=== PATIENT | female | born 1960 | race Caucasian/White ===

== ENCOUNTER 2022-09-11 23:35 | Emergency (ER) | payer OTHER ==
[~2022-09-11] VITALS: Ht 170.2 cm; Wt 61.7 kg
[~2022-09-11 23:35] MED LIST: CLIN-141 PO
[2022-09-11 23:39] VITALS: BP 126/72; PULSE 82; RESP 18
== END 2022-09-12 00:18 | disposition home or self-care (01) ==
LOC: EDH 23:35
DX: M27.69 Other endosseous dental implant failure (principal); K04.7 Periapical abscess without sinus; Z98.890 Other specified postprocedural states